=== PATIENT | male | born 1985 | race Caucasian/White ===

== ENCOUNTER 2017-06-15 10:59 | Emergency (ER) | payer BC ==
[2017-06-15 11:13] VITALS: BP 152/85; PULSE 92; RESP 16; TEMP 97.5; O2SAT 96
--- NOTE | 2017-06-15 11:27 | EDPHY ---
H & P Time Seen by Provider: 06/15/17 11:05 HPI/ROS: CHIEF COMPLAINT: Left index finger laceration HISTORY OF PRESENT ILLNESS: Patient is a 31-year-old male who presents to the emergency department after cutting his left finger on a broken glass table. Was moving the table when it broke in half. There are not numerous pieces. He cut his finger on the edge. He doubts foreign body. He has mild discomfort with no radiation of pain. His bleeding is controlled. He has no numbness or tingling to his finger. No other complaints. REVIEW OF SYSTEMS: My complete review of systems is negative except as mentioned in the HPI. Past Medical/Surgical History: Denies Social history: The patient does not smoke Smoking Status: Never smoked Physical Exam: General Appearance: Alert and no distress. Head: Pupils equal. Normal. Respiratory: No respiratory distress. Cardiac: regular rate and rhythm. Extremities: patient's lift index finger has a 2 cm laceration on the lateral aspect of the PIP joint. There is no visible tendon or ligament. No visible muscle. There is no visible foreign body. Full range of motion of the finger. Normal nerve function. Skin: No rashes or lesions. Neuro: Alert. Normal mood and affect. Constitutional: Initial Vital Signs Temperature (C) 36.4 C 06/15/17 11:05 Heart Rate 92 06/15/17 11:05 Respiratory Rate 16 06/15/17 11:05 Blood Pressure 152/85 H 06/15/17 11:05 O2 Sat (%) 96 06/15/17 11:05 O2 Delivery Mode Room Air Allergies/Adverse Reactions: No Known Allergies Allergy (Unverified 06/15/17 11:13) Home Medications: Medication Instructions Recorded NK [No Known Home Meds] 06/15/17 Medical Decision Making ED Course/Re-evaluation: In the emergency department I discussed the plan with the patient. He consented to have his finger laceration repaired. I do not feel he needs x-ray imaging based on the presentation and physical exam findings. Procedure: Laceration repair. Verbal consent was obtained from the patient. The 2 cm laceration on the left index finger was anesthetized in the usual fashion. The wound was irrigated, draped and explored to its base with a gloved finger. There were no deep structures involved. No tendon injury was identified. The wound was repaired with [ 5 0 nylon]. The wound repair was simple. The procedure was performed by myself. I gave patient wound care instructions. He was given warnings prior to leaving. He will return with worsening symptoms. He knows he needs his sutures out in 8 days. He is given wound care instructions. Differential Diagnosis: My differential includes but is not limited to laceration, ligamentous injury, tendon injury, muscle injury, vascular injury, nerve injury, foreign body Departure - Departure Disposition: Home, Routine, Self-Care Clinical Impression: Laceration Laceration of left index finger Qualifiers: Encounter type: initial encounter Damage to nail status: unspecified Foreign body presence: without foreign body Qualified Code(s): S61.211A - Laceration without foreign body of left index finger without damage to nail, initial encounter Condition: Good Instructions: Finger Laceration (ED) Additional Instructions: You need your sutures removed in 8 days. Come to the emergency department department to have your sutures removed. Return sooner with increased redness, discharge, pain, fever or any other concerns. Referrals: Mirela Goldsmith MD [Medical Doctor] - 5-7 days, if not improved
== END 2017-06-15 11:50 | disposition home or self-care (01) ==
LOC: CED 10:59
PROC: 0HQGXZZ Repair Left Hand Skin, External Approach (ICD-10-PCS; principal; 2017-06-15)
DX: S61.211A Laceration without foreign body of left index finger without damage to nail, initial encounter (principal); W25.XXXA Contact with sharp glass, initial encounter